=== PATIENT | male | born 1985 | race Caucasian/White ===

== ENCOUNTER 2018-05-19 23:23 | Emergency (ER) | payer SELFPAY ==
[~2018-05-19] VITALS: Ht 185.4 cm; Wt 59.1 kg
[2018-05-19 23:35] VITALS: Ht 185.4 cm; Wt 59.1 kg
[2018-05-20] MEDS ORDERED: NAPROSYN500 MG PO (00:24)
[2018-05-20] MEDS ORDERED: CLEOCIN HCL300 MG PO (00:24)
[2018-05-20 01:02] VITALS: BP 126/78
== END 2018-05-20 01:08 | disposition home or self-care (01) ==
LOC: D.ER 23:23
DX: K02.9 Dental caries, unspecified (principal)

== ENCOUNTER 2018-09-07 23:39 | Emergency (ER) | payer MEDICAID ==
[~2018-09-07] VITALS: Ht 185.4 cm; Wt 59.1 kg
[~2018-09-07 23:39] MED LIST: CLEOCIN HCL300 MG PO; NAPROSYN500 MG PO
[2018-09-07 23:48] VITALS: Ht 185.4 cm; Wt 59.1 kg
[2018-09-08] MEDS ORDERED: CYCLOBENZAPRINE10 MG PO (01:14)
[2018-09-08] MEDS ORDERED: EC-NAPROSYN500 MG PO (01:14)
[2018-09-08 01:42] VITALS: BP 132/79
== END 2018-09-08 01:42 | disposition home or self-care (01) ==
LOC: D.ER 23:39
DX: M54.5 Low back pain (principal); M62.838 Other muscle spasm

== ENCOUNTER 2019-05-28 23:45 | Emergency (ER) | payer OTHER ==
[~2019-05-28] VITALS: Ht 185.4 cm; Wt 72.7 kg
[~2019-05-28 23:45] MED LIST changes: +CYCLOBENZAPRINE10 MG PO; +EC-NAPROSYN500 MG PO
[2019-05-28 23:59] VITALS: Ht 185.4 cm; Wt 72.7 kg
[2019-05-29] MEDS ORDERED: HYDROCODON-ACE1 EAC2 PO (00:01)
[2019-05-29] MEDS ORDERED: EFFEXOR50 MG PO (00:01)
[2019-05-29] MEDS ORDERED: REXULTI1 MG PO (00:01)
[2019-05-29] MEDS ORDERED: OMEPRAZOLE20 M1 PO (00:04)
[2019-05-29] MEDS ORDERED: ZOFRAN ODT4 MG/UDTAB PO (00:04)
[2019-05-29 00:30] LABS: HEMATOCRIT 45.8 % (42.0-54.0); HEMOGLOBIN 15.6 g/dL (13.5-17.5); MCH 29.7 pg (26.0-34.0); MCHC 34.1 g/dL (31.0-37.0); MCV 87.2 fL (80.0-100.0); NEUTROPHILS 61.8 % (40-80); PLATELET COUNT 274 10x3/uL (130-400); RBC 5.25 10x6/uL (4.20-6.10); RDW 12.8 % (11.5-14.5); WBC 11.6 10x3/uL (4.8-10.8)
[2019-05-29 00:35] LABS: CALC OSMOLALITY 274 mosm/kg (275-300); CALCIUM 8.9 mg/dL (8.5-10.1); CARBON DIOXIDE 25.2 mmol/L (21.0-32.0); CHLORIDE - SERUM 102 mmol/L (98-107); GLUCOSE 95 mg/dL (74-106); POTASSIUM - SERUM 4.1 mmol/L (3.5-5.1); SODIUM 137 mmol/L (136-145); UREA NITROGEN 16 mg/dL (7-18); eGFR NON AFRICAN AMERICAN > 90 mL/min (90-120)
[2019-05-29 00:42] LABS: ALBUMIN 4.1 g/dL (3.4-5.0); ALKALINE PHOSPHATASE 89 U/L (30-120); ALT (SGPT) 58 U/L (10-68); BILIRUBIN - TOTAL 0.35 mg/dL (0.2-1.3); LIPASE 92 U/L (73-393); PROTEIN - SERUM 7.6 g/dL (6.4-8.2)
[2019-05-29 01:01] LABS: BILIRUBIN NEGATIVE (NEGATIVE); GLUCOSE NEGATIVE (NEGATIVE); KETONE NEGATIVE (NEGATIVE); NITRITE NEGATIVE (NEGATIVE); UROBILINOGEN NORMAL (NORMAL)
[2019-05-29 01:10] LABS: UDS - AMPHET NEGATIVE QUAL (NEGATIVE); UDS - BARB NEGATIVE QUAL (NEGATIVE); UDS - BENZO NEGATIVE QUAL (NEGATIVE); UDS - COCAINE NEGATIVE QUAL (NEGATIVE); UDS - OPIATE POSITIVE QUAL (NEGATIVE); UDS - PCP NEGATIVE QUAL (NEGATIVE); UDS - THC NEGATIVE QUAL (NEGATIVE)
[2019-05-29 01:18] VITALS: BP 119/82
== END 2019-05-29 01:20 | disposition home or self-care (01) ==
LOC: D.ER 23:45
PROVIDERS: Family Medicine
DX: R11.2 Nausea with vomiting, unspecified (principal)